=== PATIENT | male | born 1995 | race Caucasian/White ===

== ENCOUNTER 2023-07-07 15:06 | Emergency (ER) | payer BC ==
[2023-07-07] MEDS ORDERED: fentaNYL 100 MCG/2 ML SDV IVPUSH ONE (15:18)
[2023-07-07] MEDS ORDERED: Lactated Ringers 1,000 ML IV ONE (15:18)
[2023-07-07] MEDS ORDERED: Naloxone 0.4 MG/ML SDV IVPUSH PRN (15:18)
[2023-07-07] MEDS ORDERED: Sodium Chloride 0.9% 10 ML Syringe FLUSH PRN (15:18)
[2023-07-07] MEDS ORDERED: Sodium Chloride 0.9% 2.5 ML Syringe FLUSH PRN (15:18)
[2023-07-07 15:46] LABS: BASOPHILS PERCENT AUTO 0.5 % (0.0-1.5); EOSINOPHILS ABSOLUTE AUTO 0.5 K/uL (0.0-0.7); EOSINOPHILS PERCENT AUTO 7.7 % (0.0-7.0); HEMATOCRIT 44.1 % (38.0-50.0); HEMOGLOBIN 14.9 g/dL (13.0-17.0); LYMPHOCYTES ABSOLUTE AUTO 1.3 K/uL (0.6-2.4); LYMPHOCYTES PERCENT AUTO 20.5 % (16.0-40.0); MEAN CORPUSCULAR HGB CONC 33.8 g/dL (31.0-37.0); MONOCYTES ABSOLUTE AUTO 0.3 K/uL (0.0-0.8); NEUTROPHILS ABSOLUTE AUTO 4.2 K/uL (1.4-5.7); NEUTROPHILS PERCENT AUTO 66.3 % (48.0-80.0); NRBC ABSOLUTE 0 K/uL; PLATELET COUNT,PLT 181 K/uL (150-400); RED BLOOD CELL COUNT 5.13 M/uL (4.50-5.90); WHITE BLOOD CELL COUNT,WBC 6.25 K/uL (4.0-11.0)
[2023-07-07 16:02] LABS: INR 1.13 (0.86-1.11)
[2023-07-07 16:05] LABS: BLOOD UREA NITROGEN,BUN 18 mg/dL (7.0-18.0); CALCIUM 9.1 mg/dL (8.5-10.1); CARBON DIOXIDE,CO2 26.9 mmol/L (21.0-32.0); CHLORIDE,CL 103 mmol/L (98-107); CREATININE 1.3 mg/dL (0.8-1.3); EST CRCL DRUG DOSING (CG) 93.29 mL/min; ESTIMATED GFR 76 mL/min (>60); ETHANOL BLOOD MEDICAL < 3.0 mg/dL; GLUCOSE RANDOM 189 mg/dL (74-106); POTASSIUM,K 4.3 mmol/L (3.5-5.1); SODIUM,NA 138 mmol/L (136-148)
[2023-07-07] MEDS ORDERED: Iopamidol 755 Mg/ML 100 ML Bottle IVPUSH ONE (16:44)
[2023-07-07] MEDS ORDERED: Acetaminophen/HYDROcodone 325-10 MG Tab PO ONE (19:14)
== END 2023-07-07 19:23 | disposition home or self-care (01) ==
LOC: MW.ED 15:06
DX: S46.211A Strain of muscle, fascia and tendon of other parts of biceps, right arm, initial encounter (principal); Z79.899 Other long term (current) drug therapy; X50.9XXA Other and unspecified overexertion or strenuous movements or postures, initial encounter; Y93.17 Activity, water skiing and wake boarding; Y92.828 Other wilderness area as the place of occurrence of the external cause
CPT/HCPCS: 36415; 73206; 80048; 80307; 85025; 85610; 96361; 96374; 96375; 99284; A9270; J3010; J3360; J3490; J7120; Q9967

== ENCOUNTER 2024-12-04 13:50 | Emergency (ER) | payer BC | END 2024-12-04 17:05 | disposition home or self-care (01) | LOC: MW.ED 13:50 | DX: S60.221A Contusion of right hand, initial encounter (principal); Z75.8 Other problems related to medical facilities and other health care; W22.8XXA Striking against or struck by other objects, initial encounter | CPT/HCPCS: 73130-26-RT; 73130-RT; 99283 ==